=== PATIENT | female | born 1995 | race African-American/Black ===

== ENCOUNTER 2016-08-31 21:54 | Emergency (ER) | payer SELFPAY ==
[~2016-08-31] VITALS: Ht 167.6 cm; Wt 96.6 kg
[~2016-08-31 21:54] MED LIST: ALBUTEROL SULF8.5 GM INH; ALBUTEROL2.5 MG/3 M HHN; ELIMITE 5% CREA60 GM TOPIC; EPIPEN 2-P0.3 MG/0.3 IM; IBUPROFEN600 MG ORAL; KEFLEX500 MG PO; MOTRIN800 MG PO; NAPROXEN500 M1 ORAL; NYSTATIN CREAM15 GM TOPIC; PERMETHRIN60 GM TOPIC; PREDNISONE20 MG ORAL
[2016-08-31] MEDS ORDERED: NKM (22:27)
[2016-08-31] MEDS ORDERED: ANUSOL-HC25 MG RECTAL (23:06)
[2016-08-31] MEDS ORDERED: COLACE100 MG ORAL (23:06)
[2016-08-31 23:12] VITALS: BP 101/69
--- NOTE | 2016-09-01 07:11 | Emergency Room Report ---
History of Present Illness General Chief Complaint: Gastrointestinal Bleed Source: Patient Present Illness HPI 21-year-old female presents ED complaining of blood in stool x2 days. Notes pain with defecation. 5/10, nonradiating, burning. No other aggravating or relieving factors. Denies abdominal pain. Denies nausea or vomiting. Denies taking blood thinners. Denies any other associated symptoms Allergies: Coded Allergies: Lobster (Verified Allergy, Unknown, 08/31/16) Patient History Past Medical History: asthma Past Surgical History: none Pertinent Family History: none Social History: Denies: alcohol use, drug use, smoking Last Menstrual Period: august 02 Now: No Immunizations: UTD Reviewed Nursing Documentation: PMH: Agreed, PSxH: Agreed Nursing Documentation-PMH Hx Asthma: Yes Review of Systems All Other Systems: negative except mentioned in HPI Physical Exam Vital Signs Date Time Temp Pulse Resp B/P Pulse Ox O2 Delivery O2 Flow Rate FiO2 08/31/16 22:23 98.1 87 16 117/75 100 Room Air Sp02 EP Interpretation: reviewed, normal General Appearance: no apparent distress, alert, GCS 15, non-toxic Head: normocephalic Eyes: bilateral eye PERRL, bilateral eye normal inspection ENT: normal ENT inspection Neck: normal inspection Respiratory: normal inspection Cardiovascular #1: normal inspection Gastrointestinal: normal inspection Rectal: blood streaked stool, hemorrhoids Genitourinary: no CVA tenderness Musculoskeletal: normal inspection Neurologic: alert, oriented x3, responsive, motor strength/tone normal, sensory intact, speech normal Psychiatric: normal inspection Skin: normal inspection Lymphatic: normal inspection Medical Decision Making Diagnostic Impression: Primary Impression: Hemorrhoids Qualified Codes: K64.9 - Unspecified hemorrhoids Additional Impression: Constipation Qualified Codes: K59.00 - Constipation, unspecified ER Course Hospital Course 21-year-old female presenting to ED complaining of rectal bleeding, burning with defecation Differential diagnoses include: internal hemorrhoids, external hemorrhoids, anal fissure, constipation Clinical course Patient placed on stretcher in ED. After initial history physical exam reveals a young male in no acute distress. Upon rectal exam there is good rectal tone however there is gross blood noted at the rectum. There is fullness on rectal exam with tenderness consistent with an internal hemorrhoid. Gross blood noted on glove during exam. reassurance given to patient Diagnosis - constipation, hemorrhoids Stable and discharged to home with prescription for Anusol suppository, Colace. Instructed to take warm soaks in top 3 times a day for 10-15 minutes. Patient informed that bleeding may take a few days to resolve until the stools become softer and the inflammation in the hemorrhoid reduces. Patient instructed to followup with PMD. Patient instructed to return to ED if symptoms recur or worsen Last Vital Signs Date Time Temp Pulse Resp B/P Pulse Ox O2 Delivery O2 Flow Rate FiO2 08/31/16 23:12 98.5 95 16 101/69 96 Room Air Status: improved Disposition: HOME, SELF-CARE Condition: Stable Scripts Hydrocortisone Acetate* (ANUSOL-HC*) 25 Mg Supp.rect 1 SUPP RECTAL TWICE A DAY, #10 SUPP Prov: LIANA BROWN M.D. 08/31/16 Docusate Sodium* (COLACE*) 100 Mg Capsule 100 MG ORAL THREE TIMES A DAY, #30 CAP Prov: LIANA BROWN M.D. 08/31/16 Patient Instructions: Hemorrhoids, [id number] LIANA BROWN M.D. September 01, 2016 07:11
== END 2016-08-31 23:16 | disposition home or self-care (01) ==
LOC: EMR 22:36
DX: K64.9 Unspecified hemorrhoids (principal); K59.00 Constipation, unspecified; Z91.013 Allergy to seafood
CPT/HCPCS: 99284

== ENCOUNTER 2017-01-31 20:54 | Emergency (ER) | payer OTHER ==
[~2017-01-31] VITALS: Ht 167.6 cm; Wt 95.3 kg
[~2017-01-31 20:54] MED LIST changes: +ANUSOL-HC25 MG RECTAL; +COLACE100 MG ORAL; +NKM
[2017-01-31 21:05] VITALS: BP 130/79
[2017-01-31] MEDS ORDERED: Tylenol #3 tab (300mg/30mg) ORAL ONE (21:15)
[2017-01-31] MEDS ORDERED: ACETAMINOPHEN-1 EAC1 ORAL (21:43)
[2017-01-31] MEDS ORDERED: IBUPROFEN600 MG ORAL (21:43)
[2017-01-31 21:46] VITALS: BP 130/79
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
== END 2017-01-31 21:46 | disposition home or self-care (01) ==
LOC: EMR 21:26
DX: S00.83XA Contusion of other part of head, initial encounter (principal); W22.8XXA Striking against or struck by other objects, initial encounter; Y92.89 Other specified places as the place of occurrence of the external cause; R51 Headache; J45.909 Unspecified asthma, uncomplicated; Z91.013 Allergy to seafood
CPT/HCPCS: 99283

== ENCOUNTER 2017-03-26 03:14 | Emergency (ER) | payer OTHER ==
[~2017-03-26] VITALS: Ht 167.6 cm; Wt 90.7 kg
[~2017-03-26 03:14] MED LIST changes: +ACETAMINOPHEN-1 EAC1 ORAL
--- NOTE | 2017-03-26 03:31 | Emergency Room Report ---
History of Present Illness General Chief Complaint: Dyspnea/Respdistress Source: Patient Present Illness HPI Patient presents with complaints of shortness of breath sensation Patient reports previous history of asthma however has not had any problems for over the past one year Patient felt that her body felt weird Reports that she was trying to go to sleep and felt that she was having some midsternal chest discomfort Denies any pleurisy denies any vomiting denies any abdominal pain Patient has sinus disease Allergies: Coded Allergies: Lobster (Verified Allergy, Unknown, 08/31/16) Patient History Past Medical History: see triage record Pertinent Family History: none Last Menstrual Period: Mar Reviewed Nursing Documentation: PMH: Agreed, PSxH: Agreed Nursing Documentation-PMH Hx Asthma: Yes Hx Neurological Problems: No - Migraines Review of Systems All Other Systems: negative except mentioned in HPI Physical Exam Vital Signs Date Time Temp Pulse Resp B/P (MAP) Pulse Ox O2 Delivery O2 Flow Rate FiO2 03/26/17 03:17 97.3 100 16 122/76 98 Room Air Sp02 EP Interpretation: reviewed, normal General Appearance: well appearing, no apparent distress Head: normocephalic, atraumatic Eyes: bilateral eye PERRL, bilateral eye EOMI ENT: hearing grossly normal, normal pharynx, TMs + canals normal, uvula midline Neck: full range of motion, supple, no meningismus, no bony tend Respiratory: no rhonchi, no respiratory distress, no retraction, no accessory muscle use, wheezing - very fine wheezing is noted Cardiovascular #1: normal peripheral pulses, regular rate, rhythm, no edema, no gallop, no JVD, no murmur Gastrointestinal: normal bowel sounds, non tender, soft, no mass, no organomegaly, non-distended, no guarding, no hernia, no pulsatile mass, no rebound Genitourinary: no CVA tenderness Musculoskeletal: normal inspection Neurologic: oriented x3, responsive, residential gas heat technician III-XII nml as tested, motor strength/ tone normal, sensory intact Psychiatric: mood/affect normal Skin: normal color, no rash, warm/dry, palpation normal Lymphatic: normal inspection, no adenopathy Medical Decision Making Diagnostic Impression: Primary Impression: URI (upper respiratory infection) Additional Impressions: Cough Acute asthma ER Course Given the patient's history and presentation multiple differentials considered patient's imaging study does not show any acute disease Patient has done better with reading treatments At this time does not appear to be in line with cardiac pathology Patient's hemodynamically stable Breathing and saturations are appropriate And patient stable for close outpatient eval EKG Diagnostic Results Rate: normal Rhythm: NSR ST Segments: no acute changes Rhythm Strip Diag. Results EP Interpretation: yes Rate: 66 Rhythm: NSR, no PVC's, no ectopy Chest X-Ray Diagnostic Results Chest X-Ray Diagnostic Results : Chest X-Ray Ordered: Yes # of Views/Limited/Complete: 1 View Indication: Shortness of Breath EP Interpretation: Yes Interpretation: no consolidation, no effusion, no pneumothorax, no acute cardiopulmonary disease Impression: No acute disease Electronically Signed by: Cheri Holden DO Last Vital Signs Date Time Temp Pulse Resp B/P (MAP) Pulse Ox O2 Delivery O2 Flow Rate FiO2 03/26/17 03:17 97.3 100 16 122/76 98 Room Air Status: improved Disposition: HOME, SELF-CARE Condition: Improved Scripts Prednisone* (PREDNISONE*) 20 Mg Tablet 20 MG ORAL BID, #8 TAB Prov: CHERI HOLDEN D.O. 03/26/17 Albuterol Sulfate* (ALBUTEROL SULFATE MDI*) 8.5 Gm Hfa.aer.ad 2 PUFF INH Q4H Y for cough/wheezing, #1 EA 0 Refills Prov: CHERI HOLDEN D.O. 03/26/17 Additional Instructions: Patient is provided with the discharge instructions notified to follow up with primary doctor in the next 2-3 days otherwise return to the er with any worsening symptoms. Please note that this report is being documented using [employer] technology. This can lead to erroneous entry secondary to incorrect interpretation by the dictating instrument. CHERI HOLDEN D.O. Mar 26, 2017 03:31
[2017-03-26] MEDS: Albuterol ud Inhalation HHN ONE (03:43)
[2017-03-26] MEDS: Ipratropium 0.02% Inh Soln 2.5ml UD HHN ONE (03:43)
[2017-03-26 03:46] VITALS: BP 143/79
[2017-03-26] MEDS ORDERED: ALBUTEROL SULF8.5 GM INH (04:59)
[2017-03-26] MEDS ORDERED: PREDNISONE20 MG ORAL (04:59)
[2017-03-26 05:00] VITALS: BP 125/71
[2017-03-26 05:06] VITALS: BP 125/71
--- NOTE | 2017-03-26 11:32 | Diagnostic Imaging Report ---
Indication: Reason For Exam: SOB Technique: One view of the chest Comparison: 04/07/2014 Findings: Lungs and pleural spaces are clear. Heart size is normal. Is no significant interim change Impression: No acute process
--- NOTE | 2017-03-28 14:40 | Cardiology Report ---
APPROVED REPORT EKG Measurement Heart [id number] Normal sinus rhythm with sinus arrhythmia Normal ECG
== END 2017-03-26 05:19 | disposition home or self-care (01) ==
LOC: EMR 03:30
DX: J45.909 Unspecified asthma, uncomplicated (principal); Z91.013 Allergy to seafood
CPT/HCPCS: 71010; 93005; 94640; 94664; 99284

== ENCOUNTER 2017-05-02 01:03 | Emergency (ER) | payer OTHER ==
[~2017-05-02] VITALS: Ht 167.6 cm; Wt 96.2 kg
[2017-05-02 01:15] VITALS: BP 122/59
[2017-05-02] MEDS ORDERED: LORazepam Inj 2mg/ml 1ml IV ONE (01:15)
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
[2017-05-02 02:15] VITALS: BP 122/59
== END 2017-05-02 02:15 | disposition home or self-care (01) ==
LOC: EMR 01:20
DX: F41.0 Panic disorder [episodic paroxysmal anxiety] (principal)
CPT/HCPCS: 96374; 99284

== ENCOUNTER 2018-03-18 23:22 | Emergency (ER) | payer SELFPAY ==
[~2018-03-18] VITALS: Ht 165.1 cm; Wt 108.9 kg
[2018-03-18 23:50] VITALS: BP 135/88
[2018-03-19] MEDS ORDERED: Acetaminophen 650 MG SUPP RECTAL ONE
[2018-03-19] MEDS ORDERED: guaiFENesin w/Codeine 5ml Liq ud ORAL PRN
[2018-03-19] MEDS ORDERED: Ipratropium 0.02% Inh Soln 2.5ml UD HHN ONE
[2018-03-19 00:38] LABS: APPEARANCE,URINE CLOUDY; BILIRUBIN, URINE NEGATIVE (NEGATIVE); GLUCOSE, URINE (UA) NEGATIVE (NEGATIVE); KETONES,URINE 1+ (NEGATIVE); LEUKOCYTE ESTERASE ,URINE 1+ (NEGATIVE); NITRITE,URINE NEGATIVE (NEGATIVE); PH,URINE 7 (4.5-8.0); PROTEIN,URINE 2+ (NEGATIVE); UROBILINOGEN,URINE 1 MG/DL (0.0-1.0)
[2018-03-19 01:02] LABS: COLOR,URINE YELLOW
[2018-03-19 01:54] VITALS: BP 140/83
[2018-03-19] MEDS ORDERED: Albuterol ud Inhalation HHN ONE ×2 (02:00)
--- NOTE | 2018-03-19 02:09 | Emergency Room Report ---
History of Present Illness General Chief Complaint: Chest Pain Source: Patient Present Illness HPI Patient has a history of asthma. She's been coughing for several days. When she coughs she has chest pain. She denies any fevers or chills. Her inhaler is running low. She has been using it and it hasn't been helping. In the past she may have taken steroids. She does not recognize the word prednisone (but recon has). This is not her worst attack. The pain is rated 7/10, more tightness. Phlegm has been yellow and green. Never intubated. She was seen at [facility] yesterday. She still has pain and is wheezing. No calf pain, edema. No NVD. No headache, sore throat, ear pain. No dysuria. Not [facility] 02/22. H/O sleep apnea H/O migraines Allergies: Coded Allergies: Lobster (Verified Allergy, Unknown, 05/02/17) Patient History Past Medical History: see triage record Social History: Reports: smoking Social History Narrative works in part time receptionist Last Menstrual Period: feb 22 Now: No Reviewed Nursing Documentation: PMH: Agreed; PSxH: Agreed Nursing Documentation-PMH Hx Asthma: Yes Hx Neurological Problems: Yes - migraine Review of Systems All Other Systems: negative except mentioned in HPI Physical Exam Vital Signs Date Time Temp Pulse Resp B/P (MAP) Pulse Ox O2 Delivery O2 Flow Rate FiO2 03/18/18 23:31 98.2 104 18 135/88 94 Room Air 03/19/18 00:10 21 Sp02 EP Interpretation: reviewed, normal General Appearance: well appearing, no apparent distress, GCS 15, non-toxic Head: normocephalic Eyes: bilateral eye normal inspection, bilateral eye PERRL ENT: moist mucus membranes Neck: supple Respiratory: wheezing, expiration - and post tussive, other - slight tenderness with palpation Cardiovascular #1: regular rate, rhythm, no edema Cardiovascular #2: 2+ radial (R) Gastrointestinal: normal inspection, normal bowel sounds, non tender, no mass, non-distended, overweight Genitourinary: no CVA tenderness Musculoskeletal: back normal, gait/station normal, normal range of motion, no calf tenderness Neurologic: alert, oriented x3 Psychiatric: mood/affect normal Skin: normal inspection, warm/dry Medical Decision Making Diagnostic Impression: Primary Impression: Chest pain Qualified Codes: R07.9 - Chest pain, unspecified Additional Impression: Acute asthma ER Course Patient presents with pleuritic chest pain and asthma exacerbation. DDx: pneumonia, pleurisy, PE, pneumothorax, asthma exacerbation amongst others. Evaluation with EKG, CXR and UA. Based on clinical status, no labs or IV needed at this time. IV might be needed if not better with treatment. Treatment with beta agents, steroids, robitussin codiene. Clinically, PE less likely based on exam. EKG without injury. CXR no infiltrate. UA no infection. After initial treatments patient still with expiratory wheezing and coughing. A second albuterol is ordered. Patient is improved and resting without respiratory difficulty at this time. O2 sat 99% on room air. Due to the fact that this has asthmatic bronchitis the patient will be started on Levaquin. Patient stable for outpatient observation and treatment. Laboratory Tests Test 03/19/18 00:05 Urine Color Yellow Urine Appearance Cloudy Urine pH 7 (4.5-8.0) Urine Specific [place] 1.015 (1.005-1.035) Urine Protein 2+ (NEGATIVE) H Urine Glucose (UA) Negative (NEGATIVE) Urine Ketones 1+ (NEGATIVE) H Urine Blood Negative (NEGATIVE) Urine Nitrite Negative (NEGATIVE) Urine Bilirubin Negative (NEGATIVE) Urine Urobilinogen 1 MG/DL (0.0-1.0) H Urine Leukocyte Esterase 1+ (NEGATIVE) H Urine RBC 2-4 /HPF (0 - 2) H Urine WBC 2-4 /HPF (0 - 2) Urine Squamous Epithelial Cells Many /LPF (NONE/OCC) H Urine Bacteria Few /HPF (NONE) Urine Mucus Many /LPF (NONE/OCC) H Urine HCG, Qualitative Negative (NEGATIVE) Microbiology Date/Time Source Procedure Growth Status 03/19/18 00:05 Nasal Nares Influenza Types A,B Antigen ([place]) - Final Complete EKG Diagnostic Results Rate: normal Rhythm: NSR ST Segments: no acute changes Rhythm Strip Diag. Results EP Interpretation: yes Rhythm: NSR, no PVC's, no ectopy Chest X-Ray Diagnostic Results Chest X-Ray Diagnostic Results : Chest X-Ray Ordered: Yes # of Views/Limited/Complete: 1 View Indication: Other EP Interpretation: Yes Interpretation: no consolidation, no effusion, no pneumothorax, other - poor insp Impression: Other Electronically Signed by: Electronically signed by Shay Rush MD Last Vital Signs Date Time Temp Pulse Resp B/P (MAP) Pulse Ox O2 Delivery O2 Flow Rate FiO2 03/19/18 02:15 110 20 99 Room Air 03/19/18 02:01 21 03/19/18 01:54 98.2 140/83 Status: improved Disposition: HOME, SELF-CARE Condition: Improved Scripts Guaifenesin/Codeine Phos* (ROBITUSSIN AC*) 118 Ml Liquid 5 ML ORAL Q6H PRN for For Cough, #90 ML 0 Refills Prov: Shay Rush MD 03/19/18 Levofloxacin* (LEVAQUIN*) 500 Mg Tablet 500 MG ORAL DAILY, #7 TAB Prov: Shay Rush MD 03/19/18 Albuterol Sulfate* (ALBUTEROL SULFATE MDI*) 8.5 Gm Hfa.aer.ad 2 PUFF INH Q6H, #1 EA 0 Refills Prov: Shay Rush MD 03/19/18 Prednisone* (PREDNISONE*) 20 Mg Tablet 40 MG ORAL DAILY, #10 TAB Prov: Shay Rush MD 03/19/18 Referrals: [facility]/,REFERRING (PCP) Shay Rush MD Mar 19, 2018 02:09
--- NOTE | 2018-03-19 02:30 | Diagnostic Imaging Report ---
EXAM: XR Chest, 1 View CLINICAL HISTORY: COUGH TECHNIQUE: Frontal view of the chest. COMPARISON: No relevant prior studies available. FINDINGS: Lungs: Low lung volumes. No consolidation. Pleural space: Unremarkable. No pneumothorax. Heart: Unremarkable. No cardiomegaly. Mediastinum: Unremarkable. Bones/joints: Unremarkable. IMPRESSION: No acute cardiopulmonary process.
[2018-03-19] MEDS ORDERED: ALBUTEROL SULF8.5 GM INH (02:55)
[2018-03-19] MEDS ORDERED: PREDNISONE20 MG ORAL (02:55)
[2018-03-19] MEDS ORDERED: LEVAQUIN500 MG ORAL (02:55)
[2018-03-19] MEDS ORDERED: GUAIFENESIN-CO118 M1 ORAL (02:55)
[2018-03-19 03:15] VITALS: BP 136/84
== END 2018-03-19 03:15 | disposition home or self-care (01) ==
LOC: EMR 23:55
DX: R07.9 Chest pain, unspecified (principal); J45.909 Unspecified asthma, uncomplicated; F17.200 Nicotine dependence, unspecified, uncomplicated; Z91.013 Allergy to seafood
CPT/HCPCS: 71045; 81003; 81025; 86710; 94640; 94664; 99284; J7512

== ENCOUNTER 2019-12-09 01:30 | Emergency (ER) | payer OTHER ==
[~2019-12-09] VITALS: Ht 165.1 cm; Wt 101.6 kg
[~2019-12-09 01:30] MED LIST changes: +GUAIFENESIN-CO118 M1 ORAL; +LEVAQUIN500 MG ORAL
--- NOTE | 2019-12-09 01:40 | Emergency Room Report ---
History of Present Illness General Chief Complaint: Chest Pain Source: Patient Present Illness HPI 24-year-old female history of asthma here with left-sided chest pain shortness of breath. Patient says that she has felt left-sided chest pain on and off for the past week but it acutely got worse tonight. Says it is worse when she takes a deep breath. Located slowly on the left side, dull in nature, does not otherwise radiate. No fevers, chills, cough, other chest pain, palpitations, back pain, abdominal pain, nausea, vomiting, diarrhea, dysuria. No leg swelling or leg pain, long car rides or long plane rides. Patient does not smoke. Allergies: Coded Allergies: Lobster (Verified Allergy, Unknown, 05/02/17) COVID-19 Screening Contact w/high risk pt: No Experienced COVID-19 symptoms?: No COVID-19 Testing performed BELL CAPTAIN: No Patient History Last Menstrual Period: 12/09/19 Now: No Nursing Documentation-[facility] Past Medical History: No History, Except For Hx Asthma: Yes Hx Neurological Problems: Yes - migraine Review of Systems All Other Systems: negative except mentioned in HPI Physical Exam Vital Signs Date Time Temp Pulse Resp B/P (MAP) Pulse Ox O2 Delivery O2 Flow Rate FiO2 12/09/19 01:34 97.2 91 16 146/89 (108) 98 Room Air Sp02 EP Interpretation: reviewed, normal General Appearance: no apparent distress, alert, GCS 15, non-toxic Head: normocephalic, atraumatic Eyes: bilateral eye normal inspection, bilateral eye PERRL ENT: hearing grossly normal, normal pharynx, no angioedema, normal voice Neck: full range of motion, supple/symm/no masses Respiratory: chest non-tender, lungs clear, normal breath sounds, speaking full sentences Cardiovascular #1: regular rate, rhythm, no edema Cardiovascular #2: 2+ carotid (R), 2+ carotid (L), 2+ radial (R), 2+ radial (L) , 2+ dorsalis pedis (R), 2+ dorsalis pedis (L) Gastrointestinal: normal bowel sounds, non tender, soft, non-distended, no guarding, no rebound Rectal: deferred Genitourinary: normal inspection, no CVA tenderness Musculoskeletal: back normal, normal range of motion, calf tenderness, gait/ station normal, non-tender Neurologic: alert, motor strength/tone normal, oriented x3, sensory intact, responsive, speech normal Psychiatric: judgement/insight normal, memory normal, mood/affect normal, no suicidal/homicidal ideation Lymphatic: no adenopathy Medical Decision Making ER Course Laboratory Tests Test 12/09/19 01:50 White Blood Count 9.8 K/UL (4.8-10.8) Red Blood Count 4.60 M/UL (4.20-5.40) Hemoglobin 13.3 G/DL (12.0-16.0) Hematocrit 40.0 % (37.0-47.0) Mean Corpuscular Volume 87 FL (80-99) Mean Corpuscular Hemoglobin 29.0 PG (27.0-31.0) Mean Corpuscular Hemoglobin Concent 33.4 G/DL (32.0-36.0) Red Cell Distribution Width 12.5 % (11.6-14.8) Platelet Count 330 K/UL (150-450) Mean Platelet Volume 5.7 FL (6.5-10.1) L Neutrophils (%) (Auto) 67.0 % (45.0-75.0) Lymphocytes (%) (Auto) 25.0 % (20.0-45.0) Monocytes (%) (Auto) 5.9 % (1.0-10.0) Eosinophils (%) (Auto) 1.3 % (0.0-3.0) Basophils (%) (Auto) 0.9 % (0.0-2.0) D-Dimer 0.60 mg/L FEU (0.00-0.49) H Urine HCG, Qualitative Negative (NEGATIVE) Sodium Level 138 MMOL/L (136-145) Potassium Level 3.0 MMOL/L (3.5-5.1) L Chloride Level 102 MMOL/L (98-107) Carbon Dioxide Level 26 MMOL/L (21-32) Anion Gap 10 mmol/L (5-15) Blood Urea Nitrogen 16 mg/dL (7-18) Creatinine 1.0 MG/DL (0.55-1.30) Estimated Glomerular Filtration Rate > 60 mL/min (>60) Glucose Level 101 MG/DL (74-106) Calcium Level 9.1 MG/DL (8.5-10.1) Total Bilirubin 0.2 MG/DL (0.2-1.0) Aspartate Amino Transferase (AST) 13 U/L (15-37) L Alanine Aminotransferase (ALT) 14 U/L (12-78) Alkaline Phosphatase 81 U/L (46-116) Troponin I 0.000 ng/mL (0.000-0.056) Total Protein 8.2 G/DL (6.4-8.2) Albumin 4.0 G/DL (3.4-5.0) Globulin 4.2 g/dL Albumin/Globulin Ratio 1.0 (1.0-2.7) Chest x-ray: Normal chest x-ray EKG: EKG: NSR, no ischemia, intervals WNL. No ectopy Rhythm strip: patient monitored for arrhythmias - no malignant dysrhythmias, runs of PVCs, nor pauses noted Ddx: ACS, dissection, PE, PTX, pericarditis, myocarditis, musculoskeletal, GERD/ GI conditions, anxiety 24-year-old female here with right upper chest pain and mild dyspnea. Patient was hemodynamically stable and completely normal vital signs in the emergency department. CBC, CMP, troponin all unremarkable. EKG normal. She had a mildly elevated d-dimer. Chest x-ray normal. CTA chest showed no evidence of pulmonary embolism or any other acute abnormalities. Patient said that she felt completely asymptomatic here in the emergency department. She was given strict return precautions to come back to the emergency department she has any worsening chest pain or shortness of breath. She expressed understanding and was discharged. Last Vital Signs Date Time Temp Pulse Resp B/P (MAP) Pulse Ox O2 Delivery O2 Flow Rate FiO2 12/09/19 01:34 97.2 91 16 146/89 (108) 98 Room Air Scripts Acetaminophen* (ACETAMINOPHEN 325MG TABLET*) 325 Mg Tablet 650 MG ORAL Q4H PRN for For Pain, #20 TAB Prov: Gregor Jimenez M.D. 12/09/19 Gregor Jimenez M.D. Dec 09, 2019 01:40
[2019-12-09] MEDS ORDERED: Aspirin Baby 81mg ORAL ONE (01:45)
--- NOTE | 2019-12-09 01:48 | NUR ---
ED Nurse Note: pt presents to ED c/o L sided CP that radiates to the back onset 1 week ago. pt reports that the pain comes and goes, usually only lasting a few seconds but today she experienced the pain and it lasted for 1 minute. pt states that she was "just sitting doing nothing" when the px started today. denies any N/V at this time. pt rates the pain a 7/10 and describes it as being "sharp" in nature.
[2019-12-09 01:50] VITALS: BP 146/89
--- NOTE | 2019-12-09 01:52 | NUR ---
ED Nurse Note: xray is at pt bedside
[2019-12-09 02:20] LABS: BASOPHILS % (AUTO) 0.9 % (0.0-2.0); EOSINOPHILS % (AUTO) 1.3 % (0.0-3.0); HEMOGLOBIN 13.3 G/DL (12.0-16.0); MEAN CORPUSCULAR VOLUME 87 FL (80-99); MONOCYTES % (AUTO) 5.9 % (1.0-10.0); PLATELET COUNT 330 K/UL (150-450); RED CELL DISTRIBUTION WIDTH 12.5 % (11.6-14.8); WHITE BLOOD COUNT 9.8 K/UL (4.8-10.8)
[2019-12-09 02:30] LABS: ANION GAP 10 mmol/L (5-15); BLOOD UREA NITROGEN 16 mg/dL (7-18); CALCIUM 9.1 MG/DL (8.5-10.1); CARBON DIOXIDE 26 MMOL/L (21-32); CHLORIDE 102 MMOL/L (98-107); SODIUM 138 MMOL/L (136-145)
[2019-12-09 02:34] LABS: ALANINE AMINOTRANSFERASE 14 U/L (12-78); ALKALINE PHOSPHATASE 81 U/L (46-116); ASPARTATE AMINO TRANSFERASE 13 U/L (15-37); BILIRUBIN,TOTAL 0.2 MG/DL (0.2-1.0)
[2019-12-09] MEDS ORDERED: Omnipaque 350 100ml vial INJ PRN (03:00)
[2019-12-09 03:40] VITALS: BP 141/85
--- NOTE | 2019-12-09 03:45 | NUR ---
ED Nurse Note: pt transported to CT via rney, consent form signed
--- NOTE | 2019-12-09 03:49 | Diagnostic Imaging Report ---
EXAM: XR Chest, 1 View CLINICAL HISTORY: CP TECHNIQUE: Frontal view of the chest. COMPARISON: 03/26/17 FINDINGS: Lungs: Unremarkable. No consolidation. Pleural space: Unremarkable. No pneumothorax. Heart: Unremarkable. No cardiomegaly. Mediastinum: Unremarkable. Bones/joints: Unremarkable. IMPRESSION: Normal chest x-ray.
--- NOTE | 2019-12-09 04:41 | NUR ---
ED Nurse Note: pt ambulated to restroom with steady gait, no complaints at this time. VSS on patient monitor. blankets provided for comfort, safety precautions are in place. will continue to monitor
--- NOTE | 2019-12-09 04:55 | Diagnostic Imaging Report ---
EXAM: CT Angiography Chest With Intravenous Contrast CLINICAL HISTORY: CP TECHNIQUE: Axial computed tomographic angiography images of the chest with intravenous contrast. CTDI is 12.90 mGy and DLP is 386.40 mGy-cm. One or more of the following dose reduction techniques were used: automated exposure control, adjustment of the mA and/or kV according to patient size, use of iterative reconstruction technique. MIP reconstructed images were created and reviewed. COMPARISON: No relevant prior studies available. FINDINGS: Pulmonary arteries: Unremarkable. No pulmonary embolism. Aorta: No acute findings. No thoracic aortic aneurysm. Lungs: Unremarkable. No mass. No consolidation. Pleural space: Unremarkable. No significant effusion. No pneumothorax. Heart: Unremarkable. No cardiomegaly. No significant pericardial effusion. No evidence of RV dysfunction. Bones/joints: No acute fracture. No dislocation. Soft tissues: Unremarkable. Lymph nodes: Unremarkable. No enlarged lymph nodes. IMPRESSION: Normal chest CTA. No pulmonary embolism.
[2019-12-09] MEDS ORDERED: ACETAMINOPHEN325 M1 ORAL (05:09)
[2019-12-09 05:15] VITALS: BP 141/85
--- NOTE | 2019-12-09 05:15 | NUR ---
ER DISCHARGE NOTE: Patient is cleared to be discharged per ERMD, pt is aox4, on room air, with stable vital signs. pt was given dc and prescription instructions, pt was able to verbalize understanding, pt id band and iv site removed without complications. pt is able to ambulate with steady gait. pt took all belongings.
== END 2019-12-09 05:15 | disposition home or self-care (01) ==
LOC: EMR 02:10
DX: R07.9 Chest pain, unspecified (principal); R06.02 Shortness of breath; Z91.013 Allergy to seafood; R06.00 Dyspnea, unspecified
CPT/HCPCS: 36415; 71045; 71275; 80053; 81025; 84484; 85025; 85379; 93005; Q9967; Z7502; 99284; J8499